=== PATIENT | female | born 1960 | race Caucasian/White ===

== ENCOUNTER 2023-06-19 15:59 | Emergency (ER) | payer OTHER, SELFPAY ==
[2023-06-19 16:06] VITALS: BP 160/81
[2023-06-19 16:21] LABS: % Basophils 1.5 % (0-2); % Eosinophils 3.1 % (0-6); % Immature Granulocytes 0.3 % (0-0.5); % Lymphocytes 43.4 % (20.5-51.1); % Monocytes 7.7 % (1.7-9.3); Absolute Basophils 0.1 10^3/uL (0-0.2); Absolute Eosinophils 0.2 10^3/uL (0-0.7); Absolute Lymphocytes 3.1 10^3/uL (1.2-3.4); Absolute Monocytes 0.6 10^3/uL (0.1-0.6); Absolute Neutrophils 3.2 10^3/uL (1.4-6.5); Hematocrit 35.1 % (37.0-47.0); Hemoglobin 12.1 g/dL (12.0-16.0); Mean Corp Hgb Conc. 34.5 g/dL (33.0-37.0); Mean Corpuscular Hgb 30.6 pg (27.0-31.0); Mean Corpuscular Volume 88.6 fL (81.0-99.0); Nucleated Red Blood Cells % 0 %; Platelet Count 357 10^3/uL (130-400); Red Blood Cell Count 3.96 10^6/uL (4.20-5.40); Red Cell Dist. Width 14.2 % (11.5-14.5); White Blood Cell Count 7.2 10^3/uL (4.8-10.8)
[2023-06-19 16:42] LABS: ALT (SGPT) 13 U/L (0-35); AST (SGOT) 22 U/L (14-36); Albumin 3.8 g/dl (3.5-5.0); Alkaline Phosphatase 73 U/L (38-126); Blood Urea Nitrogen 20 mg/dl (7-17); Calcium 9.6 mg/dl (8.4-10.2); Carbon Dioxide 24 mmol/L (22-30); Chloride 105 mmol/L (98-107); Glucose 180 mg/dl (70-99); Sodium 138 mmol/L (135-145); Total Bilirubin 0.4 mg/dl (0.2-1.3); Total Protein 6.3 g/dl (6.3-8.2); eGFR > 60.00
--- NOTE | 2023-06-19 19:40 | ED.GENMED ---
History of Present Illness
General
Chief Complaint: Headache
Source: patient
Exam Limitations: none
Time Seen by Provider: 06/19/23 19:09
Nursing documentation reviewed up to this point in time: agreed with
Travel History
Have you had any contact with someone who has COVID-19?: No
Do you have any symptoms of coronavirus? Fever > 100 degrees, chills, cough, shortness of breath, sore throat, loss of taste or smell, muscle aches, or headache?: No
History of Present Illness
History of Present Illness:
Patient with history of migraine headache on Topamax and Nurtec, presents to ED secondary to persistent right-sided headache over the past 3 weeks, unrelieved with her maintenance medication, as well as Tylenol and Advil. Denies fever or chills.
Denies blurred vision. Denies dizziness. Denies nausea or vomiting. Denies loss of sensation or weakness. Denies difficulty ambulation. Denies recent illness. Denies recent change in medications or diet. Denies recent travel. Patient states
that since starting aforementioned medications 2 years ago, along with decreased caffeine consumption, her headache episodes have decreased significantly. Patient had an appointment with her neurologist today, which unfortunately had to be
rescheduled, prompting visit to ED tonight.
Review of Systems
Review of Systems
Allergies reviewed?: Yes
All Other Systems: ROS reviewed and negative except as documented in HPI and ROS
Constitutional: Reports no symptoms; Denies fever or chills
EENT: Denies no symptoms
Respiratory: Reports no symptoms
Cardiac: Reports no symptoms
ABD/GI: Reports no symptoms; Denies nausea or vomiting
Musculoskeletal: Reports no symptoms
Skin: Reports no symptoms
Neurological: Reports headache; Denies dizzy, weakness or numbness
Phy Exam
Physical Exam
Physical Exam:
Physical Exam
General: mild painful distress, not acutely ill. afebrile
Head: nc/at. eomi. perrla
Neck: supple. no meningeal signs.
Abdomen: normal bowel sounds. not tender.
Neuro: alert and oriented. no focal neurological deficits. normal speech.
Skin: no rash
Psychiatric: well kept. interactive and cooperative
Extremities: no edema. no calf tenderness.
Course
Orders/Labs/Results
Orders:
Orders
06/19/23 16:09
CT Head W/o Iv Contrast Urgent
Comment:
Reason For Exam: headache
06/19/23 16:13
Complete Blood Count/With Diff Urgent
Comprehensive Metabolic Panel Urgent
Magnesium Urgent
06/19/23 19:31
Sumatriptan Succinate [Imitrex] 6 mg SC NOW STA
06/19/23 19:41
Add On- LAB Urgent
Tests Added?: magnesium
Abnormal Lab Results
06/19/23
16:13
RBC 3.96 L 10^6/uL
(4.20-5.40)
Hct 35.1 L %
(37.0-47.0)
BUN 20 H mg/dl
(7-17)
Glucose 180 H mg/dl
(70-99)
06/19/23 16:13
06/19/23 16:13
Vital Signs
Initial and Last Documented VS:
Initial Vital Signs
Temp Pulse Resp BP Pulse Ox
98.0 F 73 20 160/81 99
06/19/23 16:06 06/19/23 16:06 06/19/23 16:06 06/19/23 16:06 06/19/23 16:06
Last Documented Vital Signs
Temp Pulse Resp BP Pulse Ox
98.0 F 75 20 160/81 95
06/19/23 16:06 06/19/23 20:47 06/19/23 16:06 06/19/23 16:06 06/19/23 20:47
MDM/Problems Addressed
MDM/Problems Addressed:
CT head: No acute findings. Patient remains afebrile, hemodynamically stable, and neurologically intact during observation. Discussed treatment options with the patient, including Imitrex subcu injection versus IV medications. Patient prefers to
try Imitrex first. Unfortunately, after Imitrex administration, patient states that she did not receive any significant relief. At this time, offered placing peripheral IV and administering medications. However, patient prefers to be discharged
home at this time. As such, decision made to discharge patient home, with recommendation to continue her maintenance medications. But will send a prescription for Medrol Dosepak, to be used as an outpatient. Patient will be discharged home, to
the care of her daughter.
*Critical Care Note
Total Time (30-74mins, 75-104mins- exclusive of procedures): Not Applicable
ED Attending Note
-
Portions of this chart may have been created with voice recognition software.� Occasional wrong word or��sound alike� substitutions may have occurred due to the inherent limitations of voice recognition software.
Discharge Plan
Departure
Patient Disposition: Home (Routine Discharge)
Date of Disposition: 06/19/23
Time of Disposition: 20:41
Patient with high blood pressure during this ER visit?: Yes
Condition: Good
Discharge Problem:
Headache
Instructions: Headache, Adult (DC)
Prescriptions:
New
methylprednisolone [Medrol (Dave)] 4 mg tablets,dose pack
4 mg PO DAILY Qty: 21 0RF
Rx Instructions:
As directed
Referrals:
Alberto Abraham MD [Family Provider] -
Activity Restrictions/Additional Instructions:
As discussed, please follow-up with your neurologist for further evaluation and treatment. Your prescription has been sent electronically to [facility] pharmacy in [place].
Interventions
Interventions:
*Risk Screen - Suicide Last Done: 06/19/23 16:06
*General Assessment Last Done: 06/19/23 16:06
*Neglect/Abuse Screening Last Done: 06/19/23 16:06
ED- Fall Risk Assessment Last Done: 06/19/23 20:08
*Nursing Disposition Last Done: 06/19/23 20:48
ED- Neurological Assessment Last Done: 06/19/23 20:08
Discharge Date and Time
Discharge Date/Time: 06/19/23 20:49
[2023-06-19] MEDS: IMITREX 6 MG SC (19:55)
[2023-06-19 20:13] LABS: Magnesium 2.1 mg/dl (1.6-2.3)
== END 2023-06-19 20:49 | disposition home or self-care (01) ==
LOC: EMR 15:59
PROVIDERS: Emergency Medicine; EMERGENCY PHYSICIAN Emergency Medicine; FAMILY PHYSICIAN Family Medicine
DX: R51.9 Headache, unspecified (principal); R03.0 Elevated blood-pressure reading, without diagnosis of hypertension
CPT/HCPCS: 99284; 96372; 70450; 80053; 83735; 85025